=== PATIENT | female | born 1960 | race Two or more races ===

== ENCOUNTER → 2017-06-12 | Emergency (ER) | payer OTHER ==
[~2017-06-12] VITALS: Ht 147.3 cm; Wt 72.6 kg
[~2017-06-12] MED LIST: ACIDO FOLICO; VIT B; [UNRECOGNIZED DRUG - OTHER]
== END | disposition home or self-care (01) ==
LOC: ER 17:15
DX: L03.116 Cellulitis of left lower limb (principal)

== ENCOUNTER → 2018-04-11 11:40 | Outpatient (CLI) | payer OTHER | END | disposition home or self-care (01) | LOC: LAB 11:40 | DX: J01.80 Other acute sinusitis (principal); J20.8 Acute bronchitis due to other specified organisms ==

== ENCOUNTER 2018-04-13 13:54 | Outpatient (CLI) | payer OTHER | END 2018-04-13 14:11 | disposition home or self-care (01) | LOC: MRI 13:54 | DX: M79.672 Pain in left foot (principal) | CPT/HCPCS: 73718 ==

== ENCOUNTER 2018-04-13 17:31 | Outpatient (CLI) | payer OTHER | END 2018-04-13 17:50 | disposition home or self-care (01) | LOC: LAB 17:31 | DX: J01.80 Other acute sinusitis (principal) ==

== ENCOUNTER 2018-04-15 15:27 | Outpatient (CLI) | payer OTHER | END 2018-04-15 16:01 | disposition home or self-care (01) | LOC: SONOGRAMA 15:27 | DX: E07.89 Other specified disorders of thyroid (principal) ==

== ENCOUNTER 2018-06-08 10:42 | Outpatient (CLI) | payer OTHER ==
[~2018-06-08] VITALS: Ht 152.4 cm; Wt 79.4 kg
[2018-06-08] MEDS ORDERED: ZYRTEC10 MG PO (12:22)
== END 2018-06-08 11:00 | disposition home or self-care (01) ==
LOC: OFIC 805 10:42
DX: J32.0 Chronic maxillary sinusitis (principal); J34.2 Deviated nasal septum; J31.0 Chronic rhinitis; R05 Cough; R49.8 Other voice and resonance disorders

== ENCOUNTER 2018-09-16 18:58 | Emergency (ER) | payer OTHER ==
[~2018-09-16] VITALS: Ht 147.3 cm; Wt 77.1 kg
[~2018-09-16 18:58] MED LIST changes: +ZYRTEC10 MG PO
== END 2018-09-16 19:57 | disposition home or self-care (01) ==
LOC: ER 18:58
DX: S90.01XA Contusion of right ankle, initial encounter (principal); S90.31XA Contusion of right foot, initial encounter; V49.9XXA Car occupant (driver) (passenger) injured in unspecified traffic accident, initial encounter; Y93.89 Activity, other specified; Y92.488 Other paved roadways as the place of occurrence of the external cause; Y99.8 Other external cause status

== ENCOUNTER 2019-02-16 07:43 | Outpatient (CLI) | payer OTHER | END 2019-02-16 07:52 | disposition home or self-care (01) | LOC: RAD 07:43 | DX: M25.561 Pain in right knee (principal) ==

== ENCOUNTER 2019-07-16 09:23 | Emergency (ER) | payer OTHER ==
[~2019-07-16] VITALS: Ht 147.3 cm; Wt 77.1 kg
== END 2019-07-16 12:46 | disposition home or self-care (01) ==
LOC: ER 09:23
DX: J20.8 Acute bronchitis due to other specified organisms (principal)

== ENCOUNTER 2020-11-05 13:39 | Outpatient (CLI) | payer OTHER | END 2020-11-05 13:41 | disposition home or self-care (01) | LOC: NUCLEAR 13:39 | PROVIDERS: ATTEND Obstetrics & Gynecology | DX: M81.0 Age-related osteoporosis without current pathological fracture (principal) ==

== ENCOUNTER → 2020-11-20 | Outpatient (CLI) | payer OTHER | END | disposition home or self-care (01) | LOC: MAMO-SONO 13:45 | PROVIDERS: ATTEND Obstetrics & Gynecology | DX: N60.11 Diffuse cystic mastopathy of right breast (principal); N60.12 Diffuse cystic mastopathy of left breast; Z12.31 Encounter for screening mammogram for malignant neoplasm of breast ==

== ENCOUNTER 2021-07-02 17:12 | Emergency (ER) | payer OTHER ==
[~2021-07-02] VITALS: Ht 147.3 cm; Wt 83.9 kg
[2021-07-02] MEDS ORDERED: NABUMETONE750 MG PO (18:19)
[2021-07-02] MEDS ORDERED: DICLOFENAC SOD100 GM TOP (18:19)
== END 2021-07-02 18:33 | disposition home or self-care (01) ==
LOC: ER 17:12
DX: M62.830 Muscle spasm of back (principal)

== ENCOUNTER 2023-01-27 10:13 | Emergency (ER) | payer OTHER ==
[~2023-01-27] VITALS: Ht 157.5 cm; Wt 77.1 kg
[~2023-01-27 10:13] MED LIST changes: +DICLOFENAC SOD100 GM TOP; +NABUMETONE750 MG PO
[2023-01-27] MEDS ORDERED: AMOX-CLAV 875-1 EACH PO (11:24)
[2023-01-27] MEDS ORDERED: DICLOFENAC SODI75 MG PO (11:24)
[2023-01-27] MEDS ORDERED: PEPCID AC20 MG PO (11:24)
== END 2023-01-27 11:54 | disposition home or self-care (01) ==
LOC: ER 10:13
PROVIDERS: General Practice
DX: L03.116 Cellulitis of left lower limb (principal)